=== PATIENT | male | born 2000 | race Caucasian/White ===

== ENCOUNTER 2021-09-29 12:50 | Emergency (ER) | payer OTHER, SELFPAY ==
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
[2021-09-29 13:05] VITALS: BP 121/57; BP 132/88; PULSE 104; PULSE 106; RESP 16; TEMP 36.5; O2SAT 98; O2SAT 99; BMI 21.8
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
[2021-09-29 17:15] VITALS: BP 119/62; PULSE 84; RESP 16; O2SAT 100
== END 2021-09-29 17:32 | disposition home or self-care (01) ==
PROVIDERS: Emergency Provider Emergency Medicine; PCP Pediatrics
DX: S13.4XXA Sprain of ligaments of cervical spine, initial encounter (principal); S39.012A Strain of muscle, fascia and tendon of lower back, initial encounter; V47.6XXA Car passenger injured in collision with fixed or stationary object in traffic accident, initial encounter; Y93.89 Activity, other specified; Y92.411 Interstate highway as the place of occurrence of the external cause; Y99.8 Other external cause status
CPT/HCPCS: 72040; 72100; 99283; 99284